=== PATIENT | female | born 1950 | race Caucasian/White ===

== ENCOUNTER → 2017-05-18 | Outpatient (CLI) | payer OTHER | LOC: BHFA 13:30 | PROVIDERS: ATTEND Internal Medicine Interventional Cardiology | DX: R07.9 Chest pain, unspecified (principal); R42 Dizziness and giddiness; R53.83 Other fatigue ==

== ENCOUNTER → 2017-10-17 | Outpatient (CLI) | payer OTHER | LOC: CIMAGING 16:51 | PROVIDERS: ATTEND Physician Assistant Medical | DX: R91.8 Other nonspecific abnormal finding of lung field (principal) | CPT/HCPCS: 71046-PO ==

== ENCOUNTER → 2018-07-15 | Outpatient (CLI) | payer OTHER | LOC: CIMAGING 09:14 | PROVIDERS: ATTEND Nurse Practitioner Adult Health | DX: R06.02 Shortness of breath (principal); R07.2 Precordial pain; R51 Headache; R42 Dizziness and giddiness | CPT/HCPCS: 70450-PO ==

== ENCOUNTER → 2018-07-19 | Outpatient (CLI) | payer OTHER | LOC: CIMAGING 12:11 | PROVIDERS: ATTEND Physician Assistant Medical | DX: M50.322 Other cervical disc degeneration at C5-C6 level (principal); M53.82 Other specified dorsopathies, cervical region; M43.12 Spondylolisthesis, cervical region | CPT/HCPCS: 72040-PO ==